=== PATIENT | female | born 1990 | race Caucasian/White ===

== ENCOUNTER → 2016-12-14 | Outpatient (CLI) | payer BC, MEDICAID ==
[~2016-12-14] MED LIST: DCS100C PO; FRS325T PO; HYDR-3714 PO; IBUP-1773 PO; LBT200T PO; PREN1TAB71 PO
--- NOTE | 2016-12-14 16:21 | Diagnostic Imaging Report ---
INDICATION: Undergoing anatomical evaluation. TECHNIQUE: Multiple real-time grayscale images were obtained over the gravid uterus. COMPARISON: None. FINDINGS: There is presence of a single viable intrauterine , currently in a breech presentation. Placenta is posterior and without evidence for previa. Normal amount of amniotic fluid appearing to be present. Cervical length is 3.7 cm. Visualized anatomical structures appearing unremarkable. Biometrical measurements are as follows: Biparietal 4.27 cm, age 19 weeks 0 days. Head circumference 16.5 cm, age 19 weeks 2 days. Abdominal circumference 14.66 cm, age 20 weeks 0 days. Femur length 3.15 cm, age 19 weeks 6 days. Sonographic estimate age: 19 weeks 4 days. Sonographic estimated date of delivery: 05/06/2017. Estimated Weight: 313 gm (+/- 46 gm). LMP percentile: 49%. heart rate: 156 beats per minute. number: 1 of 1. IMPRESSION: Single viable intrauterine , currently in a breech presentation. Sonographically estimated age is 19 weeks 4 days for an estimated date of delivery of May 06, 2017. No abnormalities noted at this time. Dictated by: Dictated on workstation # [id number]
== END ==
LOC: RAD 12:09
PROVIDERS: ATTEND Obstetrics & Gynecology
DX: Z36.87 Encounter for antenatal screening for uncertain dates (principal); Z3A.19 19 weeks gestation of pregnancy
CPT/HCPCS: 76805

== ENCOUNTER 2017-04-06 15:37 | Outpatient (CLI) | payer BC ==
[2017-04-06] MEDS ORDERED: BETAMETHASONE ACE/NA PHOS 6 MG/ML (CELESTONE SOLUSPAN) IM ONE (15:45)
--- NOTE | 2017-04-09 14:10 | Physician Query-Final Dx ---
BRITANY STAFFORD 04/09/17 1410: Clinic Account Progress/Dx Physician Query: Please give diagnosis Date of Service Apr 06, 2017 at 15:37 FRIDA SOLIS DO 04/10/17 1108: Clinic Account Progress/Dx DIAGNOSIS: Diagnosis 35 week IUP GHTN 2nd betamethasone dose BRITANY STAFFORD Apr 09, 2017 14:10 FRIDA SOLIS DO Apr 10, 2017 11:08
== END 2017-04-06 15:50 | disposition home or self-care (01) ==
LOC: WSo 15:37
PROVIDERS: ATTEND Obstetrics & Gynecology
DX: O13.3 Gestational [pregnancy-induced] hypertension without significant proteinuria, third trimester (principal); Z3A.35 35 weeks gestation of pregnancy
CPT/HCPCS: 96372

== ENCOUNTER 2017-04-19 05:35 | Outpatient (CLI) | payer BC ==
[~2017-04-19] VITALS: Ht 165.1 cm; Wt 75.3 kg
[2017-04-19] MEDS ORDERED: PREN-8 PO (09:40)
== END 2017-04-19 09:44 ==
LOC: PREOP 05:35
PROVIDERS: ATTEND Obstetrics & Gynecology
DX: Z01.818 Encounter for other preprocedural examination (principal); O34.211 Maternal care for low transverse scar from previous cesarean delivery

== ENCOUNTER 2017-04-30 05:55 | Inpatient (IN) | payer BC ==
[~2017-04-30] VITALS: Ht 162.6 cm; Wt 73.5 kg
[~2017-04-30 05:55] MED LIST changes: +CITRIC ACID/SOB CIT (BICITRA) 30 ML UDC ONE; +FAMOTIDINE 20MG/2ML IV (PEPCID) ONE; +LACTATED RINGERS 1,000 ML IV ONE; +METOCLOPRAMIDE INJ 10 MG/2 ML (REGLAN) ONE; +NS (IVPB) 50 ML ONE; +PREN-8 PO; +ceFAZolin 1,000 MG (ANCEF) VIAL ONE
--- OUTSIDE RECORDS SUMMARY | 2017-04-30 06:02 | XMS REPORT ---
Author Author DARIO WANG [facility] Address [address] [facility] [address] [place], [place] [id number] Care Team Providers Care Court Magistrate Name Role Phone DARIO WANG PCP Unavailable Allergies and Adverse Reactions Name Reaction Notes NO KNOWN DRUG ALLERGIES Plan of Treatment Not available. Medications Active Name Start Date Estimated Completion Date SIG Comments fluticasone 50 mcg/actuation nasal spray,suspension 10/29/2015 inhale 1 spray (50 mcg) in each nostril by intranasal route 2 times per day Adderall 10 mg oral tablet 03/16/2016 04/15/2016 take 1 tablet by oral route in AM then at noon Linzess 145 mcg oral capsule 03/19/2016 take 1 capsule by oral route every other day as needed Name Start Date Expiration Date SIG Comments Keflex 500 mg oral capsule 01/06/2015 01/20/2015 take 1 capsule (500 mg) by oral route every 12 hours for 14 days Discontinued Name Start Date Discontinued Date SIG Comments Bactrim DS 800-160 mg oral tablet 01/31/2012 take 1 tablet by oral route 2 times per day Reglan 10 mg oral tablet 10/29/2015 take 1 tablet (10 mg) by oral route TID diazepam 5 mg oral tablet 01/09/2015 10/29/2015 One half to one twice daily when necessary for anxiety anxiety Problem List Description Status Onset ADD (attention deficit disorder) Active 03/22/2015 Irritable bowel syndrome with constipation Active 03/19/2016 Vital Signs Date Time BP-Sys(mm[Hg] BP-Trish(mm[Hg]) HR(bpm) RR(rpm) Temp WT HT HC BMI BSA BMI Percentile O2 Sat(%) 03/16/2016 2:37:00 PM 120 mmHg 74 mmHg 99 bpm 16 rpm 97.7 F 127 lbs 64 in 21.80 kg/m2 1.61 m2 100 % 10/28/2015 10:55:00 AM 128 mmHg 82 mmHg 92 bpm 16 rpm 97.9 F 121 lbs 76 in 14.7284 kg/m 1.7155 m 99 % 07/07/2015 2:44:00 PM 128 mmHg 78 mmHg 78 bpm 16 rpm 98.4 F 122 lbs 64 in 20.94 kg/m2 1.58 m2 100 % 06/10/2015 3:52:00 PM 112 mmHg 70 mmHg 80 bpm 98 F 118 lbs 64 in 20.2544 kg/m 1.5546 m 98 % 03/19/2015 11:12:00 AM 118 mmHg 70 mmHg 72 bpm 18 rpm 98.7 F 125 lbs 64 in 21.46 kg/m2 1.60 m2 100 % 01/08/2015 10:49:00 AM 120 mmHg 65 mmHg 104 bpm 16 rpm 98.1 F 127.312 lbs 64 in 21.8529 kg/m 1.6148 m 98 % 06/05/2012 10:13:00 AM 120 mmHg 60 mmHg 68 bpm 16 rpm 96.6 F 143 lbs 65 in 23.80 kg/m2 1.72 m2 100 % 01/31/2012 3:28:00 PM 130 mmHg 60 mmHg 74 bpm 16 rpm 97.6 F 146 lbs 65 in 24.2954 kg/m 1.7427 m 0 % 100 % 06/10/2009 10:36:00 AM 110 mmHg 70 mmHg 84 bpm 135 lbs 03/17/2009 11:16:00 AM 108 mmHg 70 mmHg 80 bpm 131 lbs Social History Name Description Comments Exercises regularly denies alcohol use Tobacco Never smoker History of Procedures Date Ordered Description Order Status 06/10/2015 12:00 AM Decadron, Per 1 Mg NDC# [address]-91 Reviewed 06/10/2015 12:00 AM Depo-Medrol, Per 80 Mg NDC#4842-3164-93 Reviewed 10/28/2015 12:00 AM Decadron, Per 1 Mg NDC# [address]-80 Reviewed 10/28/2015 12:00 AM Depo-Medrol, Per 80 Mg NDC#4579-0636-13 Reviewed 01/31/2012 12:00 AM THER/PROPH/DIAG INJ SC/IM Reviewed 01/31/2012 12:00 AM Decadron, Per 1 Mg NDC# [address]-47 Reviewed 01/31/2012 12:00 AM Depo-Medrol, Per 80 Mg [facility]#1025-1633-67 Reviewed 01/31/2012 12:00 AM Rocephin 1 gram [facility]#8950-2976-37 Reviewed 03/17/2009 12:00 AM THER/PROPH/DIAG INJ SC/IM Reviewed 03/17/2009 12:00 AM Decadron Inj.1mg-([facility] #[id number] Reviewed 03/17/2009 12:00 AM Depo-Medrol 80 Mg Im/[facility] [id number] Reviewed 03/17/2009 12:00 AM Rocephin, Per 250MG - 1 Gram Vial Reviewed Results Summary Not available. History Of Immunizations Not available. 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 Worsening Jan 08 2015 10:50AM Mild Panic attack as reaction to stress Jan 08 2015 10:50AM Moderate ADD (attention deficit disorder) Stable Mar 19 2015 11:12AM Allergic angioedema Jun 10 2015 3:53PM Moderate Acute Hives Jun 10 2015 3:53PM ADD (attention deficit disorder) Jul 07 2015 2:44PM Mild Chronic Seasonal Allergies Worsening Oct 28 2015 10:55AM Moderate Acute Post-nasal drainage Oct 28 2015 10:55AM Moderate Acute Nasal congestion Oct 28 2015 10:55AM Allergic conjunctivitis and rhinitis, bilateral Oct 28 2015 10:55AM ADD (attention deficit disorder) Mar 16 2016 2:38PM Irritable bowel syndrome with constipation Mar 16 2016 2:38PM Payers Insurance Name Company Name Plan Name Plan Number Policy Number Policy Group Number [id number] N/A [facility] [id number] N/A [employer]uran [id number] June [facility] Financial Assistance [facility] Financial Arsenio 50 Percent Monday, March 12, 2012 [facility] Financial Assistance [facility] Financial Arsenio lh financial assistance 6 22 15 N/A History of Encounters Visit Date Visit Type Provider 03/16/2016 Office visit DARIO ODOM 10/28/2015 Office visit DARIO ODOM 07/07/2015 Office visit DARIO ODOM 06/10/2015 Office visit DARIO ODOM 03/19/2015 Office visit DARIO ODOM 01/08/2015 Office visit DARIO ODOM 06/05/2012 Office visit DARIO ODOM 04/26/2012 [facility] Dario Peterson MD 01/31/2012 Office visit DARIO ODOM 07/06/2009 Office visit Dario Wang PA-C 06/10/2009 Office visit Dario Wang PA-C 03/17/2009 Office visit Dario Wang PA-C 01/04/2009 Office visit Dario Wang PA-C
--- OUTSIDE RECORDS SUMMARY | 2017-04-30 06:03 | XMS REPORT ---
Author Author DARIO WANG [facility] Address [address] [facility] [address] [place], [place] [id number] Care Team Providers Care Medicaid Specialist Name Role Phone DARIO WANG PCP Unavailable Allergies and Adverse Reactions Name Reaction Notes NO KNOWN DRUG ALLERGIES Plan of Treatment Not available. Medications Active Name Start Date Estimated Completion Date SIG Comments fluticasone 50 mcg/actuation nasal spray,suspension 10/29/2015 inhale 1 spray (50 mcg) in each nostril by intranasal route 2 times per day Linzess 145 mcg oral capsule 03/19/2016 take 1 capsule by oral route every other day as needed Adderall 10 mg oral tablet 06/16/2016 07/16/2016 take 1 tablet by oral route in AM then at noon Name Start Date Expiration Date SIG Comments [...] Irritable bowel syndrome with constipation Active 03/19/2016 Medication management Active 06/17/2016 Vital Signs Date Time BP-Sys(mm[Hg] BP-Trish(mm[Hg]) HR(bpm) RR(rpm) Temp WT HT HC BMI BSA BMI Percentile O2 Sat(%) 06/16/2016 11:45:00 AM 105 mmHg 72 mmHg 86 bpm 18 rpm 98.7 F 122 lbs 64 in 20.94 kg/m2 1.58 m2 100 % 03/16/2016 2:37:00 PM 120 mmHg 74 mmHg 99 bpm 16 rpm 97.7 F 127 lbs 64 in 21.7993 kg/m 1.6128 m 100 % 10/28/2015 10:55:00 AM 128 mmHg 82 mmHg 92 bpm 16 rpm 97.9 F 121 lbs 76 in 14.73 kg/m2 1.72 m2 99 % 07/07/2015 2:44:00 PM 128 mmHg 78 mmHg 78 bpm 16 rpm 98.4 F 122 lbs 64 in 20.941 kg/m 1.5808 m 100 % 06/10/2015 3:52:00 PM 112 mmHg 70 mmHg 80 bpm 98 F 118 lbs 64 in 20.25 kg/m2 1.55 m2 98 % 03/19/2015 11:12:00 AM 118 mmHg 70 mmHg 72 bpm 18 rpm 98.7 F 125 lbs 64 in 21.456 kg/m 1.6001 m 100 % 01/08/2015 10:49:00 AM 120 mmHg 65 mmHg 104 bpm 16 rpm 98.1 F 127.312 lbs 64 in 21.85 kg/m2 1.61 m2 98 % 06/05/2012 10:13:00 AM 120 mmHg 60 mmHg 68 bpm 16 rpm 96.6 F 143 lbs 65 in 23.7962 kg/m 1.7247 m 100 % 01/31/2012 3:28:00 PM 130 mmHg 60 mmHg 74 bpm 16 rpm 97.6 F 146 lbs 65 in 24.30 kg/m2 1.74 m2 0 % 100 % 06/10/2009 10:36:00 AM 110 mmHg 70 mmHg 84 bpm 135 lbs 03/17/2009 11:16:00 AM 108 mmHg 70 mmHg 80 bpm 131 lbs Social History Name Description Comments Exercises regularly denies alcohol use Tobacco Never smoker History of Procedures Date Ordered Description Order Status 06/10/2015 12:00 AM Decadron, Per 1 Mg NDC# [address]-99 Reviewed 06/10/2015 12:00 AM Depo-Medrol, Per 80 Mg NDC#5691-2633-71 Reviewed 10/28/2015 12:00 AM Decadron, Per 1 Mg NDC# [address]-82 Reviewed 10/28/2015 12:00 AM Depo-Medrol, Per 80 Mg NDC#4805-9937-42 Reviewed 01/31/2012 12:00 AM THER/PROPH/DIAG INJ SC/IM Reviewed 01/31/2012 12:00 AM Decadron, Per 1 Mg [facility]# [address]-10 Reviewed 01/31/2012 12:00 AM Depo-Medrol, Per 80 Mg [facility]#4860-2415-86 Reviewed 01/31/2012 12:00 AM Rocephin 1 gram [facility]#0344-3359-01 Reviewed 03/17/2009 12:00 AM THER/PROPH/DIAG INJ SC/IM Reviewed 03/17/2009 12:00 AM Decadron Inj.1mg-([facility]) [facility] #[id number] Reviewed 03/17/2009 12:00 AM Depo-Medrol 80 Mg Im/[facility] [id number] Reviewed 03/17/2009 12:00 AM Rocephin, Per 250MG [...] 03/22/2015 Irritable bowel syndrome with constipation 03/19/2016 Medication management 06/17/2016 Eustachian Tube Dysfunction Jan 31 2012 3:28PM [...] syndrome with constipation Mar 16 2016 2:38PM Moderate Chronic ADD (attention deficit disorder) Stable Jun 16 2016 11:45AM Medication management Jun 16 2016 11:45AM Payers Insurance Name Company Name Plan Name Plan Number Policy Number Policy Group Number Start Date [employer]BS [facility] [place] [id number] N/A [facility] [id number] N/A [employer] Insurance [employer] Insuran [id number] June [facility] Financial Assistance [employer] Arsenio 50 Percent Monday, March 12, 2012 [facility] Financial Assistance [employer] Arsenio lh financial assistance 6 22 15 N/A History of Encounters Visit Date Visit Type Provider 06/16/2016 Office visit DARIO ODOM 03/16/2016 Office visit DARIO ODOM 10/28/2015 Office visit DARIO ODOM 07/07/2015 Office visit DARIO ODOM 06/10/2015 Office visit DARIO ODOM 03/19/2015 Office visit DARIO ODOM 01/08/2015 Office visit DARIO ODOM 06/05/2012 Office visit DARIO ODOM 04/26/2012 [facility] Dario Peterson MD 01/31/2012 Office visit DARIO ODOM 07/06/2009 Office visit Dario Wang PA-C 06/10/2009 Office visit Dario Wang PA-C 03/17/2009 Office visit Dario Wang PA-C 01/04/2009 Office visit Dario Wang PA-C
--- OUTSIDE RECORDS SUMMARY | 2017-04-30 06:03 | XMS REPORT ---
Author Author DARIO WANG [facility] Address [address] [facility] [address] [place], [place] [id number] Care Team Providers Care Heavy Truck Driver Name Role Phone DARIO WANG PCP Unavailable Allergies and Adverse Reactions Name Reaction Notes NO KNOWN DRUG ALLERGIES Plan of Treatment Not available. Medications Active Name Start Date Estimated Completion Date SIG Comments Adderall 10 mg oral tablet 10/28/2015 11/27/2015 take 1 tablet by oral route in AM then at noon Linzess 145 mcg oral capsule 10/29/2015 take 1 capsule by oral route every other day as needed fluticasone 50 mcg/actuation nasal spray,suspension 10/29/2015 inhale 1 spray (50 mcg) in each nostril by intranasal route 2 times per day Name Start Date Expiration Date SIG Comments [...] anxiety anxiety Problem List Description Status Onset *No known medical problems Active ADD (attention deficit disorder) Active 03/22/2015 Vital Signs Date Time BP-Sys(mm[Hg] BP-Trish(mm[Hg]) HR(bpm) RR(rpm) Temp WT HT HC BMI BSA BMI Percentile O2 Sat(%) 10/28/2015 10:55:00 AM 128 mmHg 82 mmHg [...] 06/10/2015 12:00 AM Decadron, Per [address] [facility]# [address]-49 Reviewed 06/10/2015 12:00 AM Depo-Medrol, Per [address] [facility]#7747-8058-63 Reviewed 01/31/2012 12:00 AM THER/PROPH/DIAG INJ SC/IM Reviewed 01/31/2012 12:00 AM Decadron, Per [address] [facility]# [address]-06 Reviewed 01/31/2012 12:00 AM Depo-Medrol, Per [address] [facility]#4943-5216-78 Reviewed 01/31/2012 12:00 AM Rocephin [address] [facility]#0861-5961-59 Reviewed 03/17/2009 12:00 AM THER/PROPH/DIAG INJ SC/IM Reviewed 03/17/2009 12:00 AM Decadron Inj.1mg-([facility] #[id number] Reviewed 03/17/2009 12:00 AM Depo-Medrol 80 Mg Im/[facility] NDC [id number] Reviewed 03/17/2009 12:00 AM Rocephin, Per 250MG - 1 Gram Vial Reviewed Results Summary Not available. History Of Immunizations Not available. History of Past Illness Name Date of Onset Comments Nasopharyngitis, Acute (Common Cold) Mar 17 2009 11:17AM Eustachian Tube Dysfunction Mar 17 2009 11:17AM Cough Mar 17 2009 11:17AM Last Pap 07/2008 Torticollis Jun 10 2009 10:37AM *No known medical problems ADD (attention deficit disorder) 03/22/2015 Eustachian Tube Dysfunction Jan 31 2012 3:28PM [...] and rhinitis, bilateral Oct 28 2015 10:55AM Payers Insurance Name Company Name Plan Name Plan Number Policy Number Policy Group Number Start Date [facility] [id number] [facility] [id number] N/A [employer] Insuran [id number] June [employer] Financial Assistance [employer] Arsenio 50 Percent Monday, March 12, 2012 [facility] Financial Assistance [employer] Arsenio financial assistance 6 22 15 N/A History of Encounters Visit Date Visit Type Provider 10/28/2015 Office visit DARIO ODOM 07/07/2015 Office visit DARIO ODOM 06/10/2015 Office visit DARIO ODOM 03/19/2015 Office visit DARIO ODOM 01/08/2015 Office visit DARIO ODOM 06/05/2012 Office visit DARIO ODOM 04/26/2012 [facility] Dario Peterson MD 01/31/2012 Office visit DARIO ODOM 07/06/2009 Office visit Dario TEIXEIRAC 06/10/2009 Office visit Dario Wang PA-C 03/17/2009 Office visit Dario Wang PA-C 01/04/2009 Office visit Dario Wang PA-C
--- OUTSIDE RECORDS SUMMARY | 2017-04-30 06:03 | XMS REPORT ---
Author Author DARIO WANG [facility] Address [address] [facility] [address] [place], [place] [id number] Care Team Providers Care Business Continuity Planning Director Name Role Phone DARIO WANG PCP Unavailable Allergies and Adverse Reactions Name Reaction Notes NO KNOWN DRUG ALLERGIES Plan of Treatment Not available. Medications Active Name Start Date Estimated Completion Date SIG Comments Reglan 10 mg oral tablet take 1 tablet (10 mg) by oral route TID diazepam 5 mg oral tablet 01/09/2015 One half to one twice daily when necessary for anxiety anxiety Adderall 10 mg oral tablet 07/07/2015 08/06/2015 take 1 tablet by oral route in [...] by oral route 2 times per day Problem List Description Status Onset *No known medical problems Active ADD (attention deficit disorder) Active 03/22/2015 Vital Signs Date Time BP-Sys(mm[Hg] BP-Trish(mm[Hg]) HR(bpm) RR(rpm) Temp WT HT HC BMI BSA BMI Percentile O2 Sat(%) 07/07/2015 2:44:00 PM 128 mmHg 78 mmHg [...] 06/10/2015 12:00 AM Decadron, Per [address] [facility]# [address]-25 Reviewed 06/10/2015 12:00 AM Depo-Medrol, Per [address] [facility]#0143-6807-67 Reviewed 01/31/2012 12:00 AM THER/PROPH/DIAG INJ SC/IM Reviewed 01/31/2012 12:00 AM Decadron, Per [address] [facility]# [address]-26 Reviewed 01/31/2012 12:00 AM Depo-Medrol, Per [address] [facility]#4226-0489-96 Reviewed 01/31/2012 12:00 AM Rocephin [address] [facility]#4813-9963-21 Reviewed 03/17/2009 12:00 AM THER/PROPH/DIAG INJ SC/IM Reviewed 03/17/2009 12:00 AM Decadron Inj.1mg-([facility]) [facility] #[id number] Reviewed 03/17/2009 12:00 AM Depo-Medrol 80 Mg Im/[facility] [id number] Reviewed 03/17/2009 12:00 AM Rocephin, Per 250MG [...] (attention deficit disorder) Jul 07 2015 2:44PM Payers Insurance Name Company Name Plan Name Plan Number Policy Number Policy Group Number Start Date [facility] [id number] N/A [facility] [id number] N/A [employer] Insuran [id number] June [facility] Financial Assistance [facility] Financial Arsenio 50 Percent Monday, March 12, 2012 [facility] Financial Assistance [facility] Financial Arsenio lh financial assistance 6 22 15 N/A History of Encounters Visit Date Visit Type Provider 07/07/2015 Office visit DARIO ODOM 06/10/2015 Office visit DARIO ODOM 03/19/2015 Office visit DARIO ODOM 01/08/2015 Office visit DARIO ODOM 06/05/2012 Office visit DARIO ODOM 04/26/2012 [facility] Dario Peterson MD 01/31/2012 Office visit DARIO ODOM 07/06/2009 Office visit Dario Wang PA-C 06/10/2009 Office visit Dario Wang PA-C 03/17/2009 Office visit Dario Wang PA-C 01/04/2009 Office visit Dario Wang PA-C
--- OUTSIDE RECORDS SUMMARY | 2017-04-30 06:04 | XMS REPORT ---
Author Author DARIO WANG [facility] Address [address] [facility] [address] [place], [place] [address] Care Team Providers Care Auto Transmission Mechanic Name Role Phone DARIO WANG PCP Unavailable Allergies and Adverse Reactions Name Reaction Notes NO KNOWN DRUG ALLERGIES Plan of Treatment Not available. Medications Active Name Start Date Estimated Completion Date SIG Comments Reglan 10 mg oral tablet take 1 tablet (10 mg) by oral route TID Adderall 10 mg oral tablet 01/09/2015 take 1 tablet (10 mg) by oral route once daily before breakfast diazepam 5 mg oral tablet 01/09/2015 One half to one twice daily when necessary for anxiety anxiety Name Start Date Expiration Date SIG Comments Keflex 500 mg oral capsule 01/06/2015 01/20/2015 take 1 capsule (500 mg) by oral route every 12 hours for 14 days Discontinued Name Start Date Discontinued Date SIG Comments Bactrim DS 800-160 mg oral tablet 01/31/2012 take 1 tablet by oral route 2 times per day Problem List Description Status Onset *No known medical problems Active Vital Signs Date Time BP-Sys(mm[Hg] BP-Trish(mm[Hg]) HR(bpm) RR(rpm) Temp WT HT HC BMI BSA BMI Percentile O2 Sat(%) 01/08/2015 10:49:00 AM 120 mmHg 65 mmHg [...] of Procedures Date Ordered Description Order Status 01/31/2012 12:00 AM THER/PROPH/DIAG INJ SC/IM Reviewed 01/31/2012 12:00 AM Decadron, Per 1 Mg [facility]# [address]-65 Reviewed 01/31/2012 12:00 AM Depo-Medrol, Per 80 Mg [facility]#2762-4304-29 Reviewed 01/31/2012 12:00 AM Rocephin 1 gram [facility]#5283-5853-28 Reviewed 03/17/2009 12:00 AM THER/PROPH/DIAG INJ SC/IM Reviewed 03/17/2009 12:00 AM Decadron Inj.1mg-([facility]) [facility] #[id number] Reviewed 03/17/2009 12:00 AM Depo-Medrol 80 Mg Im/[facility] [id number] Reviewed 03/17/2009 12:00 AM Rocephin, Per 250MG - 1 Gram Vial Reviewed Results Summary Not available. History Of Immunizations Not available. 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 [id number] N/A [employer] Insuran [id number] June [facility] Financial Assistance [facility] Financial Arsenio 50 Percent Monday, March 12, 2012 History of Encounters Visit Date Visit Type Provider 01/08/2015 Office visit DARIO ODOM 06/05/2012 Office visit DARIO ODOM 04/26/2012 [facility] Dario Peterson MD 01/31/2012 Office visit DARIO ODOM 07/06/2009 Office visit Dario Wang PA-C 06/10/2009 Office visit Dario Wang PA-C 03/17/2009 Office visit Dario Wang PA-C 01/04/2009 Office visit Dario Wang PA-C
--- OUTSIDE RECORDS SUMMARY | 2017-04-30 06:04 | XMS REPORT | Continuity of Care Document ---
Author Author [facility] Organization [facility] Address Unknown Phone Unavailable Allergies Active Description Code Type Severity Reaction Onset Reported/Identified Relationship to Patient Clinical Status Yes No Known Drug Allergies [id number] Drug Allergy Unknown N/A 03/14/2013 Medications There is no data. Problems Date Dx Coded Attending Type Code Diagnosis Diagnosed By 03/14/2013 FRIDA SOLIS DO Ot 642.93 HYPERTENS NOS-ANTEPARTUM 03/14/2013 FRIDA SOLIS DO Ot 644.13 THREAT LABOR NEC-ANTEPAR 03/14/2013 FRIDA SOLIS DO Ot 646.83 PREG COMPL NEC-ANTEPART 03/14/2013 FRIDA SOLIS DO Ot 787.01 NAUSEA WITH VOMITING 03/14/2013 FRIDA SOLIS DO Ot 789.00 ABDOMINAL PAIN, UNSPECIFIED SITE 04/03/2013 FRIDA SOLIS DO Ot 276.8 HYPOPOTASSEMIA 04/03/2013 FRIDA SOLIS DO Ot 285.1 AC POSTHEMORRHAG ANEMIA 04/03/2013 FRIDA SOLIS DO Ot 642.31 TRANS HYPERTEN-DELIVERED 04/03/2013 FRIDA SOLIS DO Ot 645.11 POST TERM PREG, DELIV W/WO MENTION OF AN 04/03/2013 FRIDA SOLIS DO Ot 648.22 ANEMIA-DELIVERED W P/P 04/03/2013 FRIDA SOLIS DO Ot 648.91 OTH CURR COND-DELIVERED 04/03/2013 FRIDA SOLIS DO Ot 658.01 OLIGOHYDRAMNIOS-DELIVER 04/03/2013 FRIDA SOLIS DO Ot 659.71 ABN DEL FET HT RT/RHYTHM,W OR W/O MENTIO 04/03/2013 FRIDA SOLIS DO Ot V06.1 [id number], COMBINED [ 04/03/2013 FRIDA SOLIS DO Ot V07.2 PROPHYLACT IMMUNOTHERAPY 04/03/2013 FRIDA SOLIS DO Ot V27.0 DELIVER-SINGLE LIVEBORN 12/27/2016 FRIDA SOLIS DO Ot Z36.87 ENCOUNTER FOR SCREENING FOR UN 12/27/2016 FRIDA SOLIS DO Ot Z3A.19 19 WEEKS GESTATION OF 04/06/2017 FRIDA SOLIS DO Ot O13.3 GESTATIONAL HTN W/O SIGNIFICANT PROTEINU 04/06/2017 FRIDA SOLIS DO Ot Z3A.35 35 WEEKS GESTATION OF 04/06/2017 FRIDA SOLIS DO Ot Z36.87 ENCOUNTER FOR SCREENING FOR UN 04/06/2017 FRIDA SOLIS DO Ot Z3A.19 19 WEEKS GESTATION OF 04/11/2017 FRIDA SOLIS DO Ot O13.3 GESTATIONAL HTN W/O SIGNIFICANT PROTEINU 04/11/2017 FRIDA SOLIS DO Ot Z3A.35 35 WEEKS GESTATION OF 04/11/2017 FRIDA SOLIS DO Ot O13.3 GESTATIONAL HTN W/O SIGNIFICANT PROTEINU 04/11/2017 FRIDA SOLIS DO Ot Z3A.35 35 WEEKS GESTATION OF Procedures Code Description Performed By Performed On 73.4 MEDICAL INDUCTION LABOR 03/31/2013 74.1 LOW CERVICAL 04/01/2013 99.77 APPL/ADMIN OF AN ADHESION BARRIER SUBSTA 04/01/2013 Results There is no data. Encounters ACCT No. Visit Date/Time Discharge Status Pt. Type Provider Facility Loc./Unit Complaint [id number] 04/19/2017 05:35:00 04/19/2017 09:44:00 DIS Outpatient FRIDA SOLIS DO [facility] PREOP PREVIOUS [id number] 04/06/2017 15:37:00 04/06/2017 15:50:00 DIS Outpatient FRIDA SOLIS DO [facility] WSo Z33.1 [id number] 12/14/2016 12:09:00 12/14/2016 23:59:59 CLS Outpatient FRIDA SOLIS DO [facility] RAD Z33.1 [id number] 03/31/2013 18:06:00 04/03/2013 13:50:00 DIS Inpatient FRIDA SOLIS DO [facility] WS LOW HEART TONES [id number] 03/14/2013 01:01:00 03/14/2013 03:55:00 DIS Outpatient FRIDA SOLIS DO [facility] WSo ABD PAIN [id number] 04/30/2017 07:30:00 PEN Preadmit FRIDA SOLIS DO PREVIOUS [id number] 06/16/2016 09:12:43 06/16/2016 23:59:59 JENNIFER Outpatient FRIDA WANG [id number] 03/16/2016 15:06:46 03/16/2016 23:59:59 CLS Outpatient FRIDA WANG [id number] 10/28/2015 09:06:23 10/28/2015 23:59:59 CLS Outpatient FRIDA WANG [id number] 03/19/2015 11:44:41 03/19/2015 23:59:59 CLS Outpatient FRIDA WANG [id number] 01/08/2015 10:51:13 01/08/2015 23:59:59 CLS Outpatient FRIDA WANG [id number] 01/01/2015 09:34:21 01/01/2015 23:59:59 CLS Outpatient FRIDA WANG
--- OUTSIDE RECORDS SUMMARY | 2017-04-30 06:04 | XMS REPORT ---
Author Author DARIO WANG [facility] Address [address] [place], [place] [id number] Care Team Providers Care Armhole Raiser Lockstitch Name Role Phone DARIO WANG PCP Unavailable [...] route every 12 hours for 14 days Adderall 10 mg oral tablet 04/19/2015 05/19/2015 take 1 tablet by oral route in AM then at noon Discontinued Name Start Date Discontinued Date SIG Comments Bactrim DS 800-160 mg oral tablet 01/31/2012 take 1 tablet by oral route 2 times per day Problem List Description Status Onset *No known medical problems Active ADD (attention deficit disorder) Active 03/22/2015 Vital Signs Date Time BP-Sys(mm[Hg] BP-Trish(mm[Hg]) HR(bpm) RR(rpm) Temp WT HT HC BMI BSA BMI Percentile O2 Sat(%) 06/10/2015 3:52:00 PM 112 mmHg 70 mmHg [...] 12:00 AM Decadron, Per 1 Mg [facility]# [address]-06 Reviewed 01/31/2012 12:00 AM Depo-Medrol, Per 80 Mg [facility]#3937-4248-60 Reviewed 01/31/2012 12:00 AM Rocephin 1 gram [facility]#8752-1051-70 Reviewed 03/17/2009 12:00 AM THER/PROPH/DIAG INJ SC/IM Reviewed 03/17/2009 12:00 AM Decadron Inj.1mg-([facility]) [facility] #[id number] Reviewed 03/17/2009 12:00 AM Depo-Medrol 80 Mg Im/[facility] [id number] Reviewed 03/17/2009 12:00 AM Rocephin, Per 250MG [...] Moderate Acute Hives Jun 10 2015 3:53PM Payers Insurance Name Company Name Plan Name Plan Number Policy Number Policy Group Number Start Date BCBS [facility] [id number] N/A [facility] [id number] N/A [email or web address] [id number] June [employer] Arsenio 50 Percent Monday, March 12, 2012 [employer] Arsenio lh financial assistance 6 22 15 N/A History of Encounters Visit Date Visit Type Provider 06/10/2015 Office visit DARIO ODOM 03/19/2015 Office visit DARIO ODOM 01/08/2015 Office visit DARIO ODOM 06/05/2012 Office visit DARIO ODOM 04/26/2012 [facility] Dario Peterson MD 01/31/2012 Office visit DARIO ODOM 07/06/2009 Office visit Dario Wang PA-C 06/10/2009 Office visit Dario Wang PA-C 03/17/2009 Office visit Dario Wang PA-C 01/04/2009 Office visit Dario Wang PA-C
--- OUTSIDE RECORDS SUMMARY | 2017-04-30 06:04 | XMS REPORT ---
Author Author DARIO WANG [facility] Address [address] [place], [place] [id number] Care Team Providers Care Chemical Plant Operator Supervisor Name Role Phone DARIO WANG PCP Unavailable [...] anxiety anxiety Adderall 10 mg oral tablet 03/22/2015 04/21/2015 take 1 tablet by oral route in [...] HC BMI BSA BMI Percentile O2 Sat(%) 03/19/2015 11:12:00 AM 118 mmHg 70 mmHg [...] 01/31/2012 12:00 AM Decadron, Per 1 Mg [facility]# [address]-77 Reviewed 01/31/2012 12:00 AM Depo-Medrol, Per 80 Mg [facility]#2212-3061-50 Reviewed 01/31/2012 12:00 AM Rocephin 1 gram [facility]#3389-1529-29 Reviewed 03/17/2009 12:00 AM THER/PROPH/DIAG INJ SC/IM Reviewed 03/17/2009 12:00 AM Decadron Inj.1mg-([facility] #[id number] Reviewed 03/17/2009 12:00 AM Depo-Medrol 80 Mg Im/[facility] [phone] Reviewed 03/17/2009 12:00 AM Rocephin, Per 250MG [...] deficit disorder) Stable Mar 19 2015 11:12AM Payers Insurance Name Company Name Plan Name Plan Number Policy Number Policy Group Number Start Date Aditya George [facility] [id number] N/A [employer]uran [id number] June [facility] Financial Assistance [facility] [employer]sen[employer] 50 Percent Monday, March 12, 2012 [facility] Financial Assistance [facility] [employer] Arsenio lh financial assistance 6 22 15 N/A History of Encounters Visit Date Visit Type Provider 03/19/2015 Office visit DARIO ODOM 01/08/2015 Office visit DARIO ODOM 06/05/2012 Office visit DARIO ODOM 04/26/2012 [facility] Dario Peterson MD 01/31/2012 Office visit DARIO ODOM 07/06/2009 Office visit Dario Wang PA-C 06/10/2009 Office visit Dario Wang PA-C 03/17/2009 Office visit Dario Wang PA-C 01/04/2009 Office visit Dario Wang PA-C
[2017-04-30 06:10] VITALS: BP 135/77
[2017-04-30] MEDS ORDERED: ceFAZolin INJECTION 1,000 MG in NS (IVPB) 50 ML IV ONE (06:15)
[2017-04-30] MEDS ORDERED: METOCLOPRAMIDE INJ 10 MG/2 ML (REGLAN) IV ONE (06:15)
[2017-04-30] MEDS ORDERED: FAMOTIDINE 20MG/2ML IV (PEPCID) IV ONE (06:15)
[2017-04-30] MEDS ORDERED: CITRIC ACID/SOB CIT (BICITRA) 30 ML UDC PO ONE (06:15)
[2017-04-30 06:18] LABS: BILIRUBIN,URINE NEGATIVE (NEGATIVE); COLOR,URINE YELLOW; GLUCOSE, URINE (UA) 1+ (NEGATIVE); KETONES,URINE NEGATIVE (NEGATIVE); LEUKOCYTE ESTERASE ,URINE 2+ (NEGATIVE); NITRITE,URINE NEGATIVE (NEGATIVE); PH,URINE 6 (5-9); PROTEIN,URINE NEGATIVE (NEGATIVE); UROBILINOGEN,URINE NORMAL (NORMAL)
[2017-04-30] MEDS: LACTATED RINGERS 1,000 ML IV SCH ×2 (06:23→07:16)
[2017-04-30 06:24] LABS: BACTERIA,URINE FEW /HPF; CLARITY,URINE SLIGHTLY CLOUDY; SQUAMOUS EPITHELIAL CELL,UR 25-50 /HPF
[2017-04-30 06:25] LABS: CALCIUM OXALATE CRYSTALS,UR RARE /LPF
[2017-04-30] MEDS ORDERED: DOCU-143 PO (06:33)
[2017-04-30] MEDS ORDERED: LINA72CA PO (06:33)
[2017-04-30 06:38] LABS: BASOPHILS % (AUTO) 0 % (0-10); EOSINOPHILS # (AUTO) 0.1 10^3/uL (0.0-0.3); EOSINOPHILS % (AUTO) 1 % (0-10); HEMATOCRIT 36 % (35-52); HEMOGLOBIN 13.1 G/DL (11.5-16.0); LYMPHOCYTES # (AUTO) 1.8 X 10^3 (1.0-4.0); LYMPHOCYTES % (AUTO) 23 % (12-44); MEAN CORPUSCULAR HEMOGLOBIN 31 PG (25-34); MEAN CORPUSCULAR HGB CONC 36 G/DL (32-36); MEAN CORPUSCULAR VOLUME 87 FL (80-99); MEAN PLATELET VOLUME 9.3 FL (7.4-10.4); MONOCYTES # (AUTO) 0.6 X 10^3 (0.0-1.0); MONOCYTES % (AUTO) 7 % (0-12); NEUTROPHILS # (AUTO) 5.4 X 10^3 (1.8-7.8); NEUTROPHILS % (AUTO) 69 % (42-75); PLATELET COUNT 255 10^3/uL (130-400); RED BLOOD COUNT 4.17 10^6/uL (4.35-5.85); RED CELL DISTRIBUTION WIDTH 12.6 % (10.0-14.5); WHITE BLOOD COUNT 7.9 10^3/uL (4.3-11.0)
[2017-04-30] MEDS ORDERED: fentaNYL INJECTION 100 MCG/2 ML AMP ONE (07:09)
[2017-04-30] MEDS ORDERED: OXYTOCIN/NORMAL SALINE 1,000 ML IV ONE (07:09)
--- NOTE | 2017-04-30 07:10 | History & Physical-OB ---
OB - Chief Complaint & HPI Date/Time Date of Admission: Date of Admission: Apr 30, 2017 at 5:55 am Time Seen by Provider: 07:05 Chief Complaint/History OB-Reason for Admission/Chief: Section Hx : 2 Expected Date of Delivery: May 05, 2017 Gestational Age in Weeks: 39 Indication for : desires repeat Admission Nurse Assessment Rev: Yes History of Labs A neg Antibody neg RI RPR NR HBsAg NR HIV NR GC neg GBS neg Allergies and Home Medications Allergies Coded Allergies: No Known Drug Allergies (Unverified , 03/14/13) Home Medications Docusate Sodium 100 Mg Capsule, 100 MG PO DAILY, (Reported) Linaclotide 72 Mcg Capsule, 72 MCG PO, (Reported) Vit W-Ca,Fe,FA(<1 mg) 1 Each Tablet, 1 EACH PO DAILY, (Reported) OB - History Delivery History Hx Blood Disorders: No Adverse Rxn to Tranfusion: No Patient Past Medical History n/a Social History/Family History Recent Infectious Disease Expo: No Alcohol Use: Denies Use Recreational Drug Use: No Immunizations Date of Influenza Vaccine: Jan 17, 2017 OB - Admission Exam Physical Exam Vitals: Vital Signs 04/30/17 06:10 Temp 99.2 Pulse 93 Resp 18 B/P (MAP) 135/77 (96) O2 Delivery Room Air HEENT: NCAT Heart: Rhythm Normal Abdomen: Gravid (Rokchalk1!) Extremities: Normal Reflexes: Normal Heart Rate: 130's Accelerations: Accelerations Present Decelerations: No Decelerations Short Term Variability: Present Skilled Nursing Variability: Average (6-25) Labs Laboratory Tests Test 04/30/17 06:00 04/30/17 06:20 Range/Units Urine Color YELLOW Urine Clarity SLIGHTLY CLOUDY Urine pH 6 5-9 Urine Specific [place] 1.020 1.016-1.022 Urine Protein NEGATIVE NEGATIVE Urine Glucose (UA) 1+ H NEGATIVE Urine Ketones NEGATIVE NEGATIVE Urine Nitrite NEGATIVE NEGATIVE Urine Bilirubin NEGATIVE NEGATIVE Urine Urobilinogen NORMAL NORMAL MG/DL Urine Leukocyte Esterase 2+ H NEGATIVE Urine RBC (Auto) NEGATIVE NEGATIVE Urine RBC NONE /HPF Urine WBC 2-5 /HPF Urine Squamous Epithelial Cells 25-50 H /HPF Urine Crystals PRESENT H /LPF Urine Calcium Oxalate Crystals RARE H /LPF Urine Bacteria FEW H /HPF Urine Casts NONE /LPF Urine Mucus MODERATE H /LPF Urine Culture Indicated YES White Blood Count 7.9 4.3-11.0 10^3/uL Red Blood Count 4.17 L 4.35-5.85 10^6/uL Hemoglobin 13.1 11.5-16.0 G/DL Hematocrit 36 35-52 % Mean Corpuscular Volume 87 80-99 FL Mean Corpuscular Hemoglobin 31 25-34 PG Mean Corpuscular Hemoglobin Concent 36 32-36 G/DL Red Cell Distribution Width 12.6 10.0-14.5 % Platelet Count 255 130-400 10^3/uL Mean Platelet Volume 9.3 7.4-10.4 FL Neutrophils (%) (Auto) 69 42-75 % Lymphocytes (%) (Auto) 23 12-44 % Monocytes (%) (Auto) 7 0-12 % Eosinophils (%) (Auto) 1 0-10 % Basophils (%) (Auto) 0 0-10 % Neutrophils # (Auto) 5.4 1.8-7.8 X 10^3 Lymphocytes # (Auto) 1.8 1.0-4.0 X 10^3 Monocytes # (Auto) 0.6 0.0-1.0 X 10^3 Eosinophils # (Auto) 0.1 0.0-0.3 10^3/uL Basophils # (Auto) 0.0 0.0-0.1 10^3/uL OB - Assessment/Plan/Diagnosis Assessment Assessment: section Plan Plan: Section Discharge Diagnosis Diagnosis: 27 yo @ 39 weeks Previous GHTN GBS neg FRIDA SOLIS DO Apr 30, 2017 7:10 am
[2017-04-30] MEDS ORDERED: HYDROmorphone (DILAUDID) 2 MG/ML VIAL ONE (07:23)
[2017-04-30] MEDS ORDERED: KETOROLAC 30 MG/ML VIAL ONE (07:24)
[2017-04-30] MEDS ORDERED: OXYTOCIN/NORMAL SALINE 500 ML IV ONE (07:24)
[2017-04-30] MEDS ORDERED: ONDANSETRON 4 MG/2 ML (SDV) Z0FRAN ONE (07:24)
[2017-04-30] MEDS ORDERED: PHENYLEPHRINE 100 MCG/ML 10 ML (ANESTHESIA) SYR ONE (07:28)
[2017-04-30] MEDS ORDERED: OXYTOCIN/NORMAL SALINE 500 ML IV SCH (08:39)
[2017-04-30] MEDS ORDERED: ONDANSETRON 4 MG/2 ML (SDV) Z0FRAN IVP PRN (08:45)
[2017-04-30] MEDS ORDERED: MEASLES,MUMPS,RUBELLA 1 EA INJ SC SCH (08:45)
[2017-04-30] MEDS ORDERED: TETANUS,DIPTH,PERTUSS P/F (BOOSTRIX) 0.5 ML VIAL IM SCH (08:45)
[2017-04-30] MEDS ORDERED: HYDROmorphone (DILAUDID) 2 MG/ML VIAL IVP PRN (08:45)
[2017-04-30] MEDS ORDERED: IBUPROFEN 600 MG (MOTRIN) TAB PO SCH (08:45)
[2017-04-30] MEDS: KETOROLAC 30 MG/ML VIAL IVP SCH ×3 (08:52→21:02)
[2017-04-30] MEDS: HYDROcodone/APAP 5 MG/325 MG (LORTAB) TAB PO PRN ×3 (11:28→21:56)
[2017-04-30 12:53] VITALS: BP 122/75
[2017-04-30] MEDS ORDERED: CATHETER FLUSH 10 ML SYR IV SCH (14:00)
--- NOTE | 2017-04-30 14:02 | OPERATIVE REPORT ---
DATE OF SERVICE: PREOPERATIVE DIAGNOSES: 1. A 27-year-old G2, P1 at 39 weeks and 2 days gestation. 2. Previous section. POSTOPERATIVE DIAGNOSES: 1. A 27-year-old G2, P1 at 39 weeks and 2 days gestation. 2. Previous section. PROCEDURE: Repeat low transverse section. SURGEON: Dr. Dario Downing. ANESTHESIA: Spinal. ESTIMATED BLOOD LOSS: 600 mL. URINE OUTPUT: 125 mL clear at the end of the procedure. FLUIDS: 1500 mL solution. FINDINGS: A live female weighing 7 pounds 10 ounces, Apgars of 6, 7 and 9. Grossly normal appearing uterus, bilateral fallopian tubes. Filmy adhesions of the uterine fundus to the anterior abdominal peritoneum. SPECIMENS SENT: None. INDICATIONS FOR PROCEDURE: This 27-year-old female patient who had sought care in my office. Her care was unremarkable with the exception of having gestational hypertension with the onset of approximately 34 to 35 weeks, this was similar to her previous . At that point, she was told to be on modified bed rest at home and to stop work. This did correct her blood pressure until the final week, which was found to be in the 130s over 90s; however, she had no protein in her urine and continued to remain asymptomatic throughout the week and therefore we waited till 39 weeks for delivery. Risks of the procedure were reviewed with the patient in detail. All of her questions were answered and consent was obtained in the preoperative area. OPERATIVE REPORT IN DETAIL: Once in the operating room, spinal anesthesia was found to be adequate, she was placed in supine position with leftward tilt, prepped and draped in normal sterile fashion. A Pfannenstiel skin incision is made through the previously existing scar using a knife and carried to underlying fascia using Bovie cautery. The fascial incision was extended laterally using Bovie cautery. The superior aspect of the fascial incision was then grasped with Osvaldo clamps, tented up and dissected off feeling rectus muscles. The inferior aspect of the fascial incision was then grasped with Osvaldo clamps, tented up and dissected off feeling rectus muscles. The rectus muscles were dissected down the midline using blunt traction and Wren scissors, which exposed the peritoneum which was entered bluntly and extended using blunt traction. The Guero ring retractor was placed within the peritoneal incision, which offers excellent lateral sidewall retraction. I then make a low transverse incision to the vesicouterine peritoneum and bluntly dissected the bladder flap off of the lower uterine segment. I proceeded with myotomy until membranes are visualized at which point extend the uterine incision laterally and superiorly using bandage scissors. Amniotomy was performed using Allis clamp. Clear fluid was noted. The infant was found in the vertex presentation. With gentle fundal pressure, the infant's head is elevated up to the incision where its head is delivered and bulb suction of the nares and oropharynx is performed. Anterior and posterior shoulders were delivered. The infant is then brought to the operative field with the cord was doubly clamped and cut and handed off to the waiting nurses in attendance. Cord blood was collected, 3-vessel cord with intact placenta delivered spontaneously thereafter. IV Pitocin was initiated to facilitate uterine contractions. Uterine fundus was confirmed by manual massage. The uterus was then exteriorized and cleared of all endometrial clots and debris. I then closed the uterine incision using 0 Vicryl suture in running locked fashion, second layer of imbricating 0 Monocryl was placed. Excellent hemostasis was noted after doing so. There are some adhesions which were taken down during the exteriorization of the uterus on the uterine fundus which has a mild amount of bleeding. I cauterized this vascular bed and after irrigating is performed, I placed Interceed over this to prevent repeat adhesion formation. The uterus was then placed back within the pelvis where the pelvis was copiously irrigated using normal saline. Once again there is no active bleeding noted from any of my dissection planes. I placed Interceed over my low transverse incision scar and proceed with closing the peritoneum using 3-0 Vicryl suture in running fashion. The rectus muscles reapproximated using 3-0 Vicryl suture in interrupted fashion. The fascia was reapproximated using 0 Vicryl suture in running fashion. Subcutaneous tissue was reapproximated using 3-0 plain in interrupted subcutaneous stitch and the skin reapproximated using 4-0 Monocryl in a running subcuticular. Dermabond was applied. Sterile dressing with adhesive white tape. The patient tolerated the procedure well and sent to recovery in stable condition. Lap and sponge counts correct at the end of the procedure. Count was correct as well. Two grams of Ancef were given preoperatively for infection prophylaxis. Job ID: [id number] DocumentID: [id number] Dictated Date: 04/30/2017 08:37:00 Dampener Operator Date: 04/30/2017 14:01:40 Dictated By: DO HOLLY MENG
[2017-04-30] MEDS: DOCUSATE SODIUM 100 MG (COLACE) CAP PO SCH ×2 (15:18→21:02)
--- NOTE | 2017-04-30 16:25 | Discharge Inst-Women's Service ---
Discharge Inst-Women's Serv Depart Medication/Instructions New, Converted or Re-Newed RX: RX on Chart Consults/Follow Up Additional Follow Up: Yes Orders/Referrals Dr. Downing in 7-10 days and in 6 weeks Activity Activity: Activity as Tolerated Driving Instructions: No Driving for 1 Week NO SMOKING: NO SMOKING Nothing Inside Vagina: No Douching, No Gause, No Tampons Diet Discharge Diet: No Restrictions Symptoms to Report to : Bleeding Excessive, Pain Increased, Fever Over 101 Degrees F, Vaginal Bleeding Increase, Questions/Concerns For Any Problems or Questions: Contact Your Physician Skin/Wound Care Infection Signs and Symptoms: Increased Redness, Foul Odor of Wound, Increased Drainage, Skin Itchy or Has a Rash, Increased Swelling, Temperature Above 101 F Operative Area Clean and Dry: Keep Incision Clean/Dry Stitches/Joey/Dermabond: Dermabond, Care of Stitches Bathing Instructions: FRIDA Evans DO Apr 30, 2017 4:25 pm
[2017-04-30] MEDS ORDERED: ACHD5005 PO (16:26)
[2017-04-30] MEDS ORDERED: DOCU100C37 PO (16:26)
[2017-04-30] MEDS ORDERED: IBUP-1773 PO (16:26)
[2017-04-30 17:20] VITALS: BP 130/60
[2017-04-30 21:02] VITALS: BP 126/72
[2017-04-30] MEDS: CATHETER FLUSH 10 ML SYR IV PRN (21:02)
[2017-05-01 01:00] VITALS: BP 116/66
[2017-05-01 05:00] VITALS: BP 129/80
[2017-05-01] MEDS: CATHETER FLUSH 10 ML SYR IV PRN (05:01)
[2017-05-01] MEDS: KETOROLAC 30 MG/ML VIAL IVP SCH (05:01)
[2017-05-01 06:07] LABS: BASOPHILS % (AUTO) 0 % (0-10); EOSINOPHILS # (AUTO) 0.1 10^3/uL (0.0-0.3); EOSINOPHILS % (AUTO) 1 % (0-10); HEMATOCRIT 35 % (35-52); HEMOGLOBIN 12.5 G/DL (11.5-16.0); LYMPHOCYTES % (AUTO) 18 % (12-44); MEAN CORPUSCULAR HEMOGLOBIN 32 PG (25-34); MEAN CORPUSCULAR HGB CONC 36 G/DL (32-36); MEAN CORPUSCULAR VOLUME 88 FL (80-99); MEAN PLATELET VOLUME 9.3 FL (7.4-10.4); MONOCYTES # (AUTO) 0.7 X 10^3 (0.0-1.0); MONOCYTES % (AUTO) 6 % (0-12); NEUTROPHILS # (AUTO) 8.4 X 10^3 (1.8-7.8); NEUTROPHILS % (AUTO) 75 % (42-75); PLATELET COUNT 226 10^3/uL (130-400); RED BLOOD COUNT 3.94 10^6/uL (4.35-5.85); RED CELL DISTRIBUTION WIDTH 12.7 % (10.0-14.5); WHITE BLOOD COUNT 11.2 10^3/uL (4.3-11.0)
[2017-05-01] MEDS: HYDROcodone/APAP 5 MG/325 MG (LORTAB) TAB PO PRN ×2 (08:49→15:39)
[2017-05-01 09:38] VITALS: BP 125/78
[2017-05-01] MEDS: DOCUSATE SODIUM 100 MG (COLACE) CAP PO SCH ×2 (09:38→21:35)
--- NOTE | 2017-05-01 10:09 | Postpartum Progress Note ---
Note Note Day # 1 Subjective: Patient is without complaints. Ambulating, voiding. Tolerating a regular diet without nausea or vomiting. Normal lochia. Pain is well controlled with oral pain medications. Pumping, NPO. Objective: Vital Sign - Last 24 Hours 04/30/17 04/30/17 04/30/17 05/01/17 12:53 17:20 21:02 01:00 Temp 98.0 98.2 98.4 98.6 Pulse 67 90 74 90 Resp 18 16 18 18 B/P (MAP) 122/75 (91) 130/60 (83) 126/72 (90) 116/66 (83) Pulse Ox 100 97 97 97 O2 Delivery Room Air Room Air Room Air Room Air 05/01/17 05:00 Temp 98.5 Pulse 80 Resp 18 B/P (MAP) 129/80 (96) Pulse Ox 98 O2 Delivery Room Air Intake and Output 04/30/17 04/30/17 05/01/17 15:00 23:00 07:00 Intake Total 3450 ml 1200 ml 800 ml Output Total 725 ml 875 ml 2700 ml Balance 2725 ml 325 ml -1900 ml Physical Exam: General - Alert and oriented, no apparent distress Abdomen - Soft, appropriately tender to palpation, non-distended, fundus firm at umbilicus Extremities - no edema, negative Neftali's bilaterally Incision: c/d/i Assessment: POD 1 RLTCS Recovering well, hemodynamically stable Plan: Routine care. Encourage breast feeding. Encourage ambulation. Ferrous sulfate supplementation. Plan for tomorrow Vitals - Labs Vital Signs - I&O Vital Signs Date Time Temp Pulse Resp B/P (MAP) Pulse Ox O2 Delivery O2 Flow Rate FiO2 05/01/17 05:00 98.5 80 18 129/80 (96) 98 Room Air 05/01/17 01:00 98.6 90 18 116/66 (83) 97 Room Air 04/30/17 21:02 98.4 74 18 126/72 (90) 97 Room Air 04/30/17 17:20 98.2 90 16 130/60 (83) 97 Room Air 04/30/17 12:53 98.0 67 18 122/75 (91) 100 Room Air I & O 05/01/17 07:00 Intake Total 5450 ml Output Total 4300 ml Balance 1150 ml Labs Laboratory Tests 2/20/18 05:30: White Blood Count 11.2H, Red Blood Count 3.94L, Hemoglobin 12.5, Hematocrit 35, Mean Corpuscular Volume 88, Mean Corpuscular Hemoglobin 32, Mean Corpuscular Hemoglobin Concent 36, Red Cell Distribution Width 12.7, Platelet Count 226, Mean Platelet Volume 9.3, Neutrophils (%) (Auto) 75, Lymphocytes (%) (Auto) 18, Monocytes (%) (Auto) 6, Eosinophils (%) (Auto) 1, Basophils (%) (Auto) 0, Neutrophils # (Auto) 8.4H, Lymphocytes # (Auto) 2.0, Monocytes # (Auto) 0.7, Eosinophils # (Auto) 0.1, Basophils # (Auto) 0.0 Microbiology 04/30/17 Urine Culture - Preliminary, FRIDA Ferguson DO May 01, 2017 10:09 am
[2017-05-01] MEDS: IBUPROFEN 600 MG (MOTRIN) TAB PO SCH ×2 (10:41→19:07)
--- NOTE | 2017-05-01 13:15 | Anesthesia-Regional Post-Op ---
Regional Patient Condition Mental Status: Alert, Oriented x3 Circulation: Same as Pre-Op Headache: Absent Sensation: Full Recovery Motor Block: Absent Post Op Complications Complications None Follow Up Care/Instructions Patient Instructions None needed. Anesthesia/Patient Condition Patient is doing well, no complaints, stable vital signs, no apparent adverse anesthesia problems. No complications reported per nursing. D/C home per [facility] Criteria: No RHETT BAR CRNA May 01, 2017 13:15
[2017-05-01 15:39] VITALS: BP 116/70
[2017-05-01 19:21] VITALS: BP 110/68
[2017-05-01] MEDS ORDERED: SIMETHICONE 80 MG (MYLICON) CHEW PO PRN (20:00)
[2017-05-02 00:54] VITALS: BP 106/66
[2017-05-02] MEDS: IBUPROFEN 600 MG (MOTRIN) TAB PO SCH ×3 (00:54→09:48)
[2017-05-02 07:34] VITALS: BP 135/81
[2017-05-02] MEDS: DOCUSATE SODIUM 100 MG (COLACE) CAP PO SCH (09:45)
--- NOTE | 2017-05-02 10:18 | Progress Note-Standard ---
Standard Progress Note Progress Notes/Assess & Plan Date Seen by Provider: May 02, 2017 Time Seen by Provider: 08:00 Progress/Assessment & Plan Day # 2 Subjective: Patient is without complaints. Ambulating, voiding. Tolerating a regular diet without nausea or vomiting. Normal lochia. Pain is well controlled with oral pain medications. Infant improving today off O2 supplement Objective: Vital Sign - Last 24 Hours 05/01/17 05/01/17 05/02/17 05/02/17 15:39 19:21 00:54 07:34 Temp 98.0 98.3 98.1 98.6 Pulse 94 90 97 71 Resp 18 B/P (MAP) 116/70 (85) 110/68 (82) 106/66 (79) 135/81 (99) Pulse Ox 98 98 97 97 O2 Delivery Room Air Room Air Room Air Room Air Physical Exam: General - Alert and oriented, no apparent distress Abdomen - Soft, appropriately tender to palpation, non-distended, fundus firm at umbilicus Extremities - no edema, negative Neftali's bilaterally Incision: c/d/i Assessment: POD 2 RLTCS Recovering well, hemodynamically stable Plan: Routine care. Encourage breast feeding. Encourage ambulation. Ferrous sulfate supplementation. Plan for today FRIDA SOLIS DO May 02, 2017 10:18 am
[2017-05-02 12:17] VITALS: BP 135/81
--- NOTE | 2017-05-03 14:59 | Physician Query-Final Dx ---
FRANKIE ALVAREZ 05/03/17 1459: Final Diagnosis Give Final Diagnosis Please give Final Diagnosis FRIDA SOLIS DO 05/03/17 1724: Final Diagnosis Give Final Diagnosis POD 2 RLTCS FRANKIE ALVAREZ May 03, 2017 14:59 FRIDA SOLIS DO May 03, 2017 17:24
== END 2017-05-02 12:17 | disposition home or self-care (01) | DRG 766 ==
LOC: LDRP 05:55
PROVIDERS: ADMIT Obstetrics & Gynecology; ATTEND Obstetrics & Gynecology
PROC: 10D00Z1 Extraction of Products of Conception, Low, Open Approach (ICD-10-PCS; principal; 2017-04-30 07:19)
DX: O13.4 Gestational [pregnancy-induced] hypertension without significant proteinuria, complicating childbirth (principal); O34.211 Maternal care for low transverse scar from previous cesarean delivery; Z3A.39 39 weeks gestation of pregnancy; Z37.0 Single live birth
CPT/HCPCS: 36415; 81000; 85025; 86850; 86900; 86901; 87088; 93005; 94664